=== PATIENT | male | born 1945 | race Caucasian/White ===

== ENCOUNTER 2016-05-03 06:44 | Day surgery (SDC) | payer MEDICARE, OTHER ==
[~2016-05-03 06:44] MED LIST: BESIFLOXACIN HCL 0.6% OPH SUSP 5 ML BOTTLE OS PRN; CYCLOPENTOLATE 0.2%/PHENYLEPHRINE 1% OPH SOLN 2 ML OS PRN; KETOROLAC TROMETHAMINE 0.45% 4 DROP/0.4 ML DROPERETTE OS PRN; TETRACAINE HCL 0.5% OPH SOLN 2 ML OS PRN; TROPICAMIDE 1% OPH SOLN 3 ML OS PRN
[2016-05-03] MEDS ORDERED: ALBUTEROL SULFATE 0.083% NEB 2.5 MG/3 ML AMPUL NEB ONE (07:00)
[2016-05-03] MEDS ORDERED: FENTANYL CITRATE INJ/PF 100 MCG/2 ML AMPUL ONE (07:06)
[2016-05-03] MEDS ORDERED: ONDANSETRON HCL INJ/PF 4 MG/2 ML SDV ONE (07:06)
[2016-05-03] MEDS ORDERED: MIDAZOLAM 2 MG/2 ML INJ ONE (07:06)
[2016-05-03] MEDS ORDERED: PHENYLEPHRINE/KETOROLAC 1%-0.3% 4 ML VIAL ONE (07:11)
[2016-05-03] MEDS ORDERED: LIDOCAINE 1% INJ-PF (10 MG/ML) 30 ML SDV ONE (07:12)
[2016-05-03] MEDS ORDERED: CHONDR SU A NA/HYALUR INTRAOC KIT (SURGICARE) ONE (07:12)
== END 2016-05-03 07:20 | disposition home or self-care (01) ==
LOC: SC 06:44
PROVIDERS: ATTEND Internal Medicine
DX: H25.12 Age-related nuclear cataract, left eye (principal); Z53.9 Procedure and treatment not carried out, unspecified reason
CPT/HCPCS: C9447; J2250; J2405; J3010; J3490

== ENCOUNTER 2016-11-01 07:26 | Day surgery (SDC) | payer MEDICARE, OTHER ==
[~2016-11-01 07:26] MED LIST changes: -BESIFLOXACIN HCL 0.6% OPH SUSP 5 ML BOTTLE OS PRN; -CYCLOPENTOLATE 0.2%/PHENYLEPHRINE 1% OPH SOLN 2 ML OS PRN; +MIDAZOLAM 2 MG/2 ML INJ ONE; -TETRACAINE HCL 0.5% OPH SOLN 2 ML OS PRN; -TROPICAMIDE 1% OPH SOLN 3 ML OS PRN
[2016-11-01] MEDS ORDERED: EPINEPHRINE INJ/PF 1 MG/1 ML AMPULE ONE (07:27)
[2016-11-01] MEDS ORDERED: LIDOCAINE 1% INJ-PF (10 MG/ML) 30 ML SDV ONE (07:27)
[2016-11-01] MEDS ORDERED: CHONDR SU A NA/HYALUR INTRAOC KIT (SURGICARE) ONE (07:28)
[2016-11-01] MEDS: CYCLOPENTOLATE 0.2%/PHENYLEPHRINE 1% OPH SOLN 2 ML OS PRN ×3 (07:45→08:09)
[2016-11-01] MEDS: TROPICAMIDE 1% OPH SOLN 3 ML OS PRN ×3 (07:45→08:09)
[2016-11-01] MEDS: BESIFLOXACIN HCL 0.6% OPH SUSP 5 ML BOTTLE OS PRN ×4 (07:46→08:53)
[2016-11-01] MEDS: TETRACAINE HCL 0.5% OPH SOLN 2 ML OS PRN ×3 (07:47→08:12)
--- NOTE | 2016-11-02 11:32 | [facility] DISCHARGE SUMMARY E ---
[facility] Discharge Summary NAME: DIAZ KARIMI AGE: 71Y ADMITTED: 11/01/2016 DISCHARGED: 11/01/2016 HOSPITAL COURSE: This is a 71-year-old male who underwent cataract extraction of the left eye. DIAGNOSIS: Cataract, left eye. INDICATIONS: He underwent surgery because he was having difficulty with headlights making it difficult to drive. DISCHARGE INSTRUCTIONS: She should be on a regular diet. No bending at his waist. No heavy lifting. He should use his Besivance, Ilevro, and Durezol at 3 p.m. and 8 p.m. and sleep with a rigid shield. I will see him for his 1 day postoperative tomorrow. DICTATING PHYSICIAN: YANELY SEE M.D. [id number] PHY#: [id number] ID: [id number] JOB#: [id number] ACCT: [id number] cc:YANELY SEE M.D. >
--- NOTE | 2016-11-02 11:32 | [facility] OPERATIVE REPORT E ---
[facility] Operative Report NAME: DIAZ KARIMI AGE: 71Y DATE OF SURGERY: 11/01/2016 ROOM: PREOPERATIVE DIAGNOSIS: CATARACT, LEFT EYE. POSTOPERATIVE DIAGNOSIS: CATARACT, LEFT EYE. OPERATION: Cataract extraction with intraocular lens implant of the left eye. SURGEON: YANELY SEE M.D. ANESTHESIA: Topical. PROCEDURE: After obtaining appropriate consent, the patient's left eye was prepped and draped in sterile fashion as well as the surgeon in a sterile manner and cataract surgery was started. First a paracentesis blade was used to make a small side-port incision. Viscoelastic was used to inflate the anterior chamber. Next a 2.4 mm incision was made with the paracentesis blade. A continuous capsulorrhexis incision was made using a cystotome and Utrata forceps. Following this hydrodissection was carried out to make the lens fully loose and mobile and it was rotated 90 degrees. Following this, a gsssij-glu-iadenkf technique was used to phacoemulsify the lens with a CDE of 22.93. The remaining cortex was removed with irrigation/aspiration. Provisc was instilled into the capsular bag to inflate the bag. A SN60WF, 23.0 diopter lens was placed. The remaining viscoelastic material was removed with irrigation/aspiration. Following this, a 10-0 nylon suture was used to close the incision and it was found to be watertight. Vigamox was instilled in the eye and a protective shield was placed over the eye. The patient returned to the postoperative recovery in stable condition. DICTATING PHYSICIAN: YANELY SEE M.D. [id number] PHY#: [id number] ID: [id number] JOB#: [id number] ACCT: [id number] cc:YANELY SEE M.D. >
== END 2016-11-01 09:51 | disposition home or self-care (01) ==
LOC: SC 07:26
PROVIDERS: ATTEND Internal Medicine
PROC: 08RK3JZ Replacement of Left Lens with Synthetic Substitute, Percutaneous Approach (ICD-10-PCS; principal; 2016-11-01 08:30)
DX: H25.12 Age-related nuclear cataract, left eye (principal)
CPT/HCPCS: 66984; V2632; J2250; J3490 ×2; A9270; J0171; 142

== ENCOUNTER 2016-11-22 06:45 | Day surgery (SDC) | payer MEDICARE, OTHER ==
[~2016-11-22 06:45] MED LIST changes: +KETOROLAC TROMETHAMINE 0.45% 4 DROP/0.4 ML DROPERETTE OD PRN; -KETOROLAC TROMETHAMINE 0.45% 4 DROP/0.4 ML DROPERETTE OS PRN; -MIDAZOLAM 2 MG/2 ML INJ ONE
[2016-11-22] MEDS: TROPICAMIDE 1% OPH SOLN 3 ML OD PRN ×3 (06:57→07:23)
[2016-11-22] MEDS: CYCLOPENTOLATE 0.2%/PHENYLEPHRINE 1% OPH SOLN 2 ML OD PRN ×3 (06:57→07:23)
[2016-11-22] MEDS: BESIFLOXACIN HCL 0.6% OPH SUSP 5 ML BOTTLE OD PRN ×3 (06:58→08:00)
[2016-11-22] MEDS: TETRACAINE HCL 0.5% OPH SOLN 2 ML OD PRN ×3 (06:59→07:36)
[2016-11-22] MEDS ORDERED: MIDAZOLAM 2 MG/2 ML INJ ONE (07:07)
[2016-11-22] MEDS ORDERED: FENTANYL CITRATE INJ/PF 100 MCG/2 ML AMPUL ONE (07:07)
[2016-11-22] MEDS ORDERED: EPINEPHRINE INJ/PF 1 MG/1 ML AMPULE ONE (07:11)
[2016-11-22] MEDS ORDERED: LIDOCAINE 1% INJ-PF (10 MG/ML) 30 ML SDV ONE (07:11)
[2016-11-22] MEDS ORDERED: CHONDR SU A NA/HYALUR INTRAOC KIT (SURGICARE) ONE (07:11)
--- NOTE | 2016-11-22 14:43 | [facility] OPERATIVE REPORT E ---
[facility] Operative Report NAME: DIAZ KARIMI AGE: 71Y DATE OF SURGERY: 11/22/2016 ROOM: PREOPERATIVE DIAGNOSIS: Cataract, right eye. POSTOPERATIVE DIAGNOSIS: Cataract, right eye. OPERATION: Cataract extraction with intraocular lens implant of the right eye. SURGEON: YANELY SEE M.D. ANESTHESIA: Topical. PROCEDURE: After obtaining appropriate consent, the patient's right eye was prepped and draped in sterile fashion as well as the surgeon in a sterile manner and cataract surgery was started. First a paracentesis blade was used to make a small side-port incision. Viscoelastic was used to inflate the anterior chamber. Next a 2.4 mm incision was made with the paracentesis blade. A continuous capsulorrhexis incision was made using a cystotome and Utrata forceps. Following this hydrodissection was carried out to make the lens fully loose and mobile and it was rotated 90 degrees. Following this, a kubqxl-hgu-zbcirkk technique was used to phacoemulsify the lens with a CDE of 27.23. The remaining cortex was removed with irrigation/aspiration. Provisc was instilled into the capsular bag to inflate the bag. A SN60WF, 23.5 diopter lens was placed. The remaining viscoelastic material was removed with irrigation/aspiration. Following this, a 10-0 nylon suture was used to close the incision and it was found to be watertight. Vigamox was instilled in the eye and a protective shield was placed over the eye. The patient returned to the postoperative recovery in stable condition. DICTATING PHYSICIAN: YANELY SEE M.D. [id number] PHY#: [id number] ID: [id number] JOB#: [id number] ACCT: [id number] cc:YANELY SEE M.D. >
--- NOTE | 2016-11-22 14:43 | [facility] DISCHARGE SUMMARY E ---
[facility] Discharge Summary NAME: DIAZ KARIMI AGE: 71Y ADMITTED: 11/22/2016 DISCHARGED: 11/22/2016 HISTORY OF PRESENT ILLNESS AND HOSPITAL COURSE: This is a 71-year-old male who underwent cataract extraction of the right eye. DIAGNOSIS: Cataract, right eye. HOSPITAL COURSE: He underwent surgery because he was having difficulty seeing road signs. DISCHARGE INSTRUCTIONS: 1. He should be on a regular diet. 2. No bending at the waist and no heavy lifting. 3. He should use his Besivance, Ilevro, and Durezol at 3 p.m. and 8 p.m. and sleep with a rigid shield. 4. I will see him for his one-day postoperative tomorrow. DICTATING PHYSICIAN: YANELY SEE M.D. [id number] JOSE#: [id number] ID: [id number] JOB#: [id number] ACCT: [id number] cc:YANELY SEE M.D. >
== END 2016-11-22 09:00 | disposition home or self-care (01) ==
LOC: SC 06:45
PROVIDERS: ATTEND Internal Medicine
PROC: 08RJ3JZ Replacement of Right Lens with Synthetic Substitute, Percutaneous Approach (ICD-10-PCS; principal; 2016-11-22 07:30)
DX: H25.11 Age-related nuclear cataract, right eye (principal); Z96.1 Presence of intraocular lens; Z98.42 Cataract extraction status, left eye; J44.9 Chronic obstructive pulmonary disease, unspecified; K21.9 Gastro-esophageal reflux disease without esophagitis; Z87.891 Personal history of nicotine dependence; Z79.899 Other long term (current) drug therapy
CPT/HCPCS: 66984; V2632; J2250; J3490 ×2; A9270; J0171; J3010; 142

== ENCOUNTER 2018-06-12 18:56 | Emergency (ER) | payer MEDICARE, OTHER ==
--- NOTE | 2018-06-12 20:14 | EKG REPORT ---
SEVERITY:- ABNORMAL ECG - SINUS RHYTHM INCOMPLETE LEFT BUNDLE BRANCH BLOCK : Confirmed by: Diana Garner MD 12-Jun-2018 20:13:57
[2018-06-12] MEDS ORDERED: ASPIRIN 81 MG TABLET, CHEWABLE PO ONE (21:26)
--- NOTE | 2018-06-12 21:33 | ER Document Report ---
ED Medical Screen (RME) - General Chief Complaint: Chest Pain Stated Complaint: CHEST PAIN Time Seen by Provider: 06/12/18 21:26 Primary Care Provider: TERRI CARDENAS MD [Primary Care Provider] - Follow up as needed Notes: 72-year-old male, chief complaint of chest pain, had it earlier today and then again while working outside using his chainsaw. It is very specific, sharp, over the left side of his chest. Denies shortness of breath, dizziness, nausea, vomiting. History of COPD, denies history of RI or cardiac disease. TRAVEL OUTSIDE OF THE [place] IN LAST 30 DAYS: No - Related Data Allergies/Adverse Reactions: No Known Allergies Allergy (Verified 06/12/18 18:57) Past Medical History - Past Medical History Cardiac Medical History: Denies: Hx Heart Attack, Hx Hypertension - USUALLY LOW Pulmonary Medical History: Reports: Hx COPD Denies: Hx Asthma Neurological Medical History: Denies: Hx Cerebrovascular Accident, Hx Seizures GI Medical History: Reports: Hx Gastroesophageal Reflux Disease, Hx Ulcer - 1965. Denies: Hx Hepatitis, Hx Hiatal Hernia Infectious Medical History: Denies: Hx Hepatitis Past Surgical History: Reports: Hx Appendectomy. Denies: Hx Open Heart Surgery, Hx Pacemaker Physical Exam - Vital signs Vitals: Temp Pulse Resp BP Pulse Ox 98.1 F 81 20 114/67 97 06/12/18 19:25 06/12/18 19:25 06/12/18 19:25 06/12/18 19:25 06/12/18 19:25 - Respiratory Chest status: Tender - There is reproducible chest wall tenderness on the left mid to lower chest Breath sounds: Decreased air movement - Cardiovascular Rhythm: Regular. No: Tachycardia Heart sounds: Normal auscultation, S1 appreciated, S2 appreciated Course - Re-evaluation Re-evalutation: I have greeted and performed a rapid initial assessment of this patient. A comprehensive ED assessment and evaluation of the patient, analysis of test results and completion of the medical decision making process will be conducted by additional ED providers. - Vital Signs Vital signs: Temp Pulse Resp BP Pulse Ox 98.1 F 81 20 114/67 97 06/12/18 19:25 06/12/18 19:25 06/12/18 19:25 06/12/18 19:25 06/12/18 19:25 Doctor's Discharge - Discharge Referrals: TERRI CARDENAS MD [Primary Care Provider] - Follow up as needed
[2018-06-12 22:24] LABS: ABSOLUTE BASOPHILS # (AUTO) 0.1 10^3/uL (0.0-0.2); ABSOLUTE EOSINOPHILS # (AUTO) 0.1 10^3/uL (0.0-0.6); ABSOLUTE LYMPHOCYTES (AUTO) 1.3 10^3/uL (0.5-4.7); ABSOLUTE MONOCYTES (AUTO) 0.6 10^3/uL (0.1-1.4); ABSOLUTE NEUT (AUTO) 3.2 10^3/uL (1.7-8.2); EOSINOPHILS % (AUTO) 2.1 % (0-6); HEMATOCRIT 42.6 % (37.9-51.0); HEMOGLOBIN 14.4 g/dL (13.5-17.0); LYMPHOCYTES % (AUTO) 23.9 % (13-45); MEAN CORPUSCULAR HGB CONC 33.8 g/dL (32.0-36.0); MEAN CORPUSCULAR VOLUME 86 fl (80-97); MONOCYTES % (AUTO) 11.6 % (3-13); PLATELET COUNT 185 10^3/uL (150-450); RED BLOOD COUNT 4.97 10^6/uL (4.35-5.55); RED CELL DISTRIBUTION WIDTH 14.9 % (11.5-14.0); SEGMENTED NEUTROPHILS % (AUTO) 61.4 % (42-78); TOTAL CELLS COUNTED % (AUTO) 100 %; WHITE BLOOD COUNT 5.2 10^3/uL (4.0-10.5)
--- NOTE | 2018-06-12 22:24 | RADIOLOGY REPORT (SQ) ---
EXAM DESCRIPTION: X-ray single view chest. CLINICAL HISTORY: 72 years Male, chest pain COMPARISON: None. TECHNIQUE: Single (one) portable x-ray view of the chest performed on 06/12/2018 at 9:54 PM FINDINGS: The lungs are well expanded and are clear. There is no evidence of a pneumothorax. The cardiac silhouette is normal in size and configuration. The mediastinal contours are normal. No acute osseous abnormality is identified. There is mild scoliosis of the thoracolumbar spine convex to the right. No focal soft tissue abnormalities are seen. Lines and tubes: None. IMPRESSION: No evidence of acute intrathoracic disease.
[2018-06-12 22:34] LABS: ALANINE AMINOTRANSFERASE 16 U/L (21-72); ALBUMIN 4.5 g/dL (3.5-5.0); ALKALINE PHOSPHATASE 126 U/L (38-126); ANION GAP 8 (5-19); ASPARTATE AMINO TRANSFERASE 29 U/L (17-59); BILIRUBIN,DIRECT 0.4 mg/dL (0.0-0.4); BILIRUBIN,TOTAL 0.7 mg/dL (0.2-1.3); BLOOD UREA NITROGEN 23 mg/dL (7-20); CALCIUM 9.6 mg/dL (8.4-10.2); CARBON DIOXIDE 28 mmol/L (22-30); CHLORIDE 108 mmol/L (98-107); GLUCOSE 90 mg/dL (75-110); POTASSIUM 4.4 mmol/L (3.6-5.0); SODIUM 143.5 mmol/L (137-145); TOTAL PROTEIN 8.1 g/dL (6.3-8.2)
--- NOTE | 2018-06-13 02:58 | ER Document Report ---
ED Cardiac - General Chief Complaint: Chest Pain Stated Complaint: CHEST PAIN Time Seen by Provider: 06/12/18 21:26 Primary Care Provider: TERRI CARDENAS MD [ACTIVE STAFF] - Follow up as needed Mode of Arrival: Ambulatory Information source: Patient Notes: Patient complained of chest pain which started around 12 noon yesterday when he was cutting a tree with a chainsaw and raking the yard at his home. He said the chest pain. When he stopped exerting himself. However the chest pain came back and when he came to the ED after receiving aspirin his chest pain stopped. Since then he has not come back. TRAVEL OUTSIDE OF THE [place] IN LAST 30 DAYS: No - HPI Patient complains to provider of: Chest pain Was the onset of pain: Sudden Is the pain a: New problem Chest pain location: Substernal Quality of pain: Intermittent, Heaviness Chest pain radiation location: None Severity now: Moderate Severity at worst: Moderate Pain level currently: 0 Chest pain precipitating factors: Physical Exertion Cardiac risk factors: None Positive cardiac history: No Associated symptoms: None Exacerbated by: Activity Relieved by: Rest, Other - Aspirin Similar symptoms previously: No Recently seen / treated by doctor: No - Related Data Allergies/Adverse Reactions: No Known Allergies Allergy (Verified 06/12/18 18:57) Past Medical History - Social History Smoking Status: Former Smoker Family History: Reviewed & Not Pertinent Patient has suicidal ideation: No Patient has homicidal ideation: No - Past Medical History Cardiac Medical History: Denies: Hx Heart Attack, Hx Hypertension - USUALLY LOW Pulmonary Medical History: Reports: Hx COPD Denies: Hx Asthma Neurological Medical History: Denies: Hx Cerebrovascular Accident, Hx Seizures Renal/ Medical History: Denies: Hx Peritoneal Dialysis GI Medical History: Reports: Hx Gastroesophageal Reflux Disease, Hx Ulcer - 1965. Denies: Hx Hepatitis, Hx Hiatal Hernia Infectious Medical History: Denies: Hx Hepatitis Past Surgical History: Reports: Hx Appendectomy. Denies: Hx Open Heart Surgery, Hx Pacemaker Review of Systems - Review of Systems Constitutional: No symptoms reported EENT: No symptoms reported Cardiovascular: Chest pain Respiratory: No symptoms reported Gastrointestinal: No symptoms reported Genitourinary: No symptoms reported Male Genitourinary: No symptoms reported Musculoskeletal: No symptoms reported Skin: No symptoms reported Hematologic/Lymphatic: No symptoms reported Neurological/Psychological: No symptoms reported -: Yes All other systems reviewed and negative Physical Exam - Vital signs Vitals: Temp Pulse Resp BP Pulse Ox 98.1 F 81 20 114/67 97 06/12/18 19:25 06/12/18 19:25 06/12/18 19:25 06/12/18 19:25 06/12/18 19:25 Interpretation: Normal - General General appearance: Appears well, Alert - HEENT Head: Normocephalic, Atraumatic Eyes: Normal Pupils: PERRL - Respiratory Respiratory status: No respiratory distress Chest status: Nontender Breath sounds: Normal Chest palpation: Normal - Cardiovascular Rhythm: Regular Heart sounds: Normal auscultation Murmur: No - Abdominal Inspection: Normal Distension: No distension Bowel sounds: Normal Tenderness: Nontender Organomegaly: No organomegaly - Back Back: Normal, Nontender - Extremities General upper extremity: Normal inspection, Nontender, Normal color, Normal ROM, Normal temperature General lower extremity: Normal inspection, Nontender, Normal color, Normal ROM, Normal temperature, Normal weight bearing. No: Lindsey's sign - Neurological Neuro grossly intact: Yes Cognition: Normal Orientation: AAOx4 Leigh Ann Coma Scale Eye Opening: Spontaneous Gordon Coma Scale Verbal: Oriented Leigh Ann Coma Scale Motor: Obeys Commands Gordon Coma Scale Total: 15 Speech: Normal Motor strength normal: LUE, RUE, LLE, RLE Sensory: Normal - Psychological Associated symptoms: Normal affect, Normal mood - Skin Skin Temperature: Warm Skin Moisture: Dry Skin Color: Normal Course - Vital Signs Vital signs: Temp Pulse Resp BP Pulse Ox 98.1 F 81 13 110/64 95 06/12/18 19:25 06/12/18 19:25 06/13/18 04:38 06/13/18 04:38 06/13/18 04:38 - Laboratory Result Diagrams: 06/12/18 21:44 06/12/18 21:44 Laboratory results interpreted by me: 06/12/18 06/12/18 21:44 21:44 RDW 14.9 H Chloride 108 H BUN 23 H ALT 16 L - Diagnostic Test Radiology reviewed: Reports reviewed - EKG Interpretation by [facility] EKG shows normal: Sinus rhythm Rate: Normal - 82 Rhythm: NSR [place]/QRS: LBBB When compared to previous EKG there are: No significant change Additional EKG results interpreted by me: 06/13/18 02:55 Incomplete left bundle branch block which is unchanged from old EKG of February 29, 2016. No STEMI. - Transfer of Care Notes: 06/13/18 04:32 Patient care was discussed with Dr. Justin Russo the hospitalist reception centre manager. He will admit patient to the hospital for further evaluation and management. Discharge - Discharge Clinical Impression: Chest pain Qualifiers: Chest pain type: unspecified Qualified Code(s): R07.9 - Chest pain, unspecified Condition: Stable Disposition: AGAINST MEDICAL ADVICE Admitting Provider: Hospitalist Unit Admitted: Telemetry Referrals: TERRI CARDENAS MD [ACTIVE STAFF] - Follow up as needed
[2018-06-13] MEDS ORDERED: MAG HYDROX/AL HYDROX/SIMETH SUSP 30 ML UDCUP PO PRN (04:33)
[2018-06-13] MEDS ORDERED: CARBIDOPA/LEVODOPA 25-100 MG TABLET PO ONE (04:45)
[2018-06-13] MEDS ORDERED: BACLOFEN 10 MG TABLET PO PRN (04:45)
[2018-06-13 04:46] VITALS: BP 110/64
[2018-06-13] MEDS ORDERED: PANTOPRAZOLE SODIUM 40 MG TABLET.DR PO SCH (06:00)
[2018-06-13] MEDS ORDERED: TIOTROPIUM BROMIDE DPI 5 CAP/KIT (18 MCG/CAP) IH SCH (10:00)
[2018-06-13] MEDS ORDERED: CETIRIZINE 10 MG TABLET PO SCH (10:00)
[2018-06-13] MEDS ORDERED: CARBIDOPA/LEVODOPA 25-100 MG TABLET PO SCH (10:00)
[2018-06-13] MEDS ORDERED: ASPIRIN 81 MG TABLET, ENT COATED PO SCH (10:00)
== END 2018-06-13 04:46 | disposition left against medical advice (07) ==
LOC: ER 18:56
DX: R07.9 Chest pain, unspecified (principal); X58.XXXA Exposure to other specified factors, initial encounter; Z87.891 Personal history of nicotine dependence; J44.9 Chronic obstructive pulmonary disease, unspecified
CPT/HCPCS: 93005; 99285; 36415; 85025; 80053; 84484; 71045; 93010; A9270; J3490

== ENCOUNTER 2018-12-13 11:20 | Emergency (ER) | payer MEDICARE, OTHER ==
--- NOTE | 2018-12-13 12:37 | ER Document Report ---
ED Medical Screen (RME) - General Chief Complaint: Skin Problem Stated Complaint: SKIN ISSUE Time Seen by Provider: 12/13/18 12:32 Primary Care Provider: SHAAN DUMONT MD [Primary Care Provider] - Follow up as needed Mode of Arrival: Ambulatory Information source: Patient Notes: Patient reports a black spot to the right anterior thigh for the past 2 weeks. Patient states yesterday around the black lesion he developed some yellow discoloration. Patient denies any trauma to the leg. Patient denies any fever. Patient is concerned about gangrene and possibly losing his extremity. I have greeted and performed a rapid initial assessment of this patient. A comprehensive ED assessment and evaluation of the patient, analysis of test results and completion of the medical decision making process will be conducted by additional ED providers. TRAVEL OUTSIDE OF THE [place] IN LAST 30 DAYS: No - Related Data Allergies/Adverse Reactions: No Known Allergies Allergy (Verified 12/13/18 12:24) Past Medical History - Past Medical History Cardiac Medical History: Denies: Hx Heart Attack, Hx Hypertension - USUALLY LOW Pulmonary Medical History: Reports: Hx COPD Denies: Hx Asthma Neurological Medical History: Denies: Hx Cerebrovascular Accident, Hx Seizures Renal/ Medical History: Denies: Hx Peritoneal Dialysis GI Medical History: Reports: Hx Gastroesophageal Reflux Disease, Hx Ulcer - 1965. Denies: Hx Hepatitis, Hx Hiatal Hernia Infectious Medical History: Denies: Hx Hepatitis Past Surgical History: Reports: Hx Appendectomy. Denies: Hx Open Heart Surgery, Hx Pacemaker Physical Exam - Vital signs Vitals: Temp Pulse Resp BP Pulse Ox 97.6 F 81 18 119/64 93 12/13/18 11:24 12/13/18 11:24 12/13/18 11:12/13/18 11:12/13/18 11:24 - Skin Skin Color: Ecchymosis - Ecchymosis to right anterior leg Course - Vital Signs Vital signs: Temp Pulse Resp BP Pulse Ox 97.6 F 81 18 119/64 93 12/13/18 11:24 12/13/18 11:24 12/13/18 11:24 12/13/18 11:24 12/13/18 11:24 Doctor's Discharge - Discharge Referrals: SHAAN DUMONT MD [Primary Care Provider] - Follow up as needed
--- NOTE | 2018-12-13 14:12 | ER Document Report ---
HPI - HPI Patient complains to provider of: right leg skin lesion Time Seen by Provider: 12/13/18 12:32 Onset/Duration: Gradual, Persistent Quality of pain: No pain Severity: Mild Pain Level: Denies Context: 73 yom with the listed pmh here for concern of a discoloration on his right anterior midshaft thigh for the last almost month. he hasn't f/u with his pcp or anyone for this. there is no pain, drainage, bleeding, swelling or discharge from the area and pt states he never would have known it was there if he had not had looked down at his leg. pt isn't able to tell me any traumatic event or known etiology or causatory factor of his skin discoloration. he is able to walk. no numbness, tingling, weakness, saddle anesthesia, fever, uti sx, low back pain, incontinence, or any other sx. no hx of diabetes or asthma. no recent abx or steroids. hasn't put anything on it or sought care until now. denies bleeding from anywhere. no prior hx of easy bruising or bleeding. no hx of bleeding or clotting disorders. denies acute blood loss sx. no lesions any where else. no hx of cancer. no itching. no concerns for stds. no liver dz. no uti sx. no blood thinners. no tick bites, no other complaints at this time. Exacerbated by: Denies Relieved by: Denies Similar symptoms previously: No Recently seen / treated by doctor: No - ROS Systems Reviewed and Negative: Yes All other systems reviewed and negative - to include 10 systems, unless mentioned in the hpi Past Medical History - General Information source: Patient - Social History Smoking Status: Former Smoker Frequency of alcohol use: None Drug Abuse: None Lives with: Spouse/Significant other Family History: Reviewed & Not Pertinent Patient has suicidal ideation: No Patient has homicidal ideation: No - Past Medical History Cardiac Medical History: Denies: Hx Heart Attack Comment Only: Hx Hypertension - USUALLY LOW Pulmonary Medical History: Reports: Hx COPD - not on home o2 Denies: Hx Asthma Neurological Medical History: Denies: Hx Cerebrovascular Accident, Hx Seizures Renal/ Medical History: Denies: Hx Peritoneal Dialysis GI Medical History: Reports: Hx Gastroesophageal Reflux Disease, Hx Ulcer - 1965. Denies: Hx Hepatitis, Hx Hiatal Hernia Infectious Medical History: Denies: Hx Hepatitis Past Surgical History: Reports: Hx Appendectomy, Hx Orthopedic Surgery - right hand. Denies: Hx Open Heart Surgery, Hx Pacemaker - Immunizations Immunizations up to date: Yes Hx Diphtheria, Pertussis, Tetanus Vaccination: Yes Vertical Provider Document - CONSTITUTIONAL Agree With Documented VS: Yes Exam Limitations: No Limitations General Appearance: WD/WN Notes: GENERAL_APPEARANCE: alert, cooperative, no_obvious_discomfort. pleasant, elderly thin black male, smiling, speaking in full sentences, easily sitting up, in no sign of pain or resp distress. multiple family members at bedside all laughing and joking around with pt VITALS: reviewed, see vital signs table. HEAD:normocephalic, atraumatic, no moncada signs, no raccoon eyes EYES: conjunctiva_clear. EOMI, PERRL. no eyelid swelling. no photophobia, no nystagmus, no drainage EARS: normal tms and canals bilat, no rash. no drainage NOSE:no drainage or bleeding MOUTH: (-)decreased moisture. THROAT: no_tonsilar_inflammation/hypertrophy/exudate, no_airway_obstruction. no tongue or lip swelling, no drooling, tripoding, voice change or stridor. no sign of anaphylaxis. no oral lesions. no thrush NECK: no tenderness or swelling. full rom. full strength. no meningeal signs. no lymphadenopathy. LUNGS: no_wheezing, ctab, (-)accessory muscle use, good air exchange bilateral. HEART: normal_rate, normal_rhythm, ABDOMEN: normal_BS, soft, no abd tenderness, no guarding, rebound, distension, or peritoneal signs, no cva ttp EXTREMITIES: strength 5/5 in all extremities, no swelling\tenderness in the extremities, no edema. full rom. normal gait. brisk cap refill. 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 NEURO: motor and sensation intact to light touch, cranial nerves 2-12 intact, cerebellar fxn intact SKIN: warm, dry, good color, rash: two very small <0.5cm in diameter resolved likely bruises to his right mid shaft anterior thigh. no sign of cellulitis or compartment syndrome. non drainable collection. it doesn't appear like a drug rash, allergic reaction, spider bite, necrosis, fungal, or hives. area nonttp. There is no fluctuation, drainage, streaking, bleeding, or drainable fluid collection. There is no central clearing. not tinea or hive like. It does solomon. not dermatomal. not on palms soles, intraorally, or in the webspaces. no sign of tens, erythema multiforme, or win keith. no target lesions. MENTAL_STATUS: speech clear, oriented_X_3, responds appropriately to question s. - INFECTION CONTROL TRAVEL OUTSIDE OF THE [place] IN LAST 30 DAYS: No Course - Re-evaluation Re-evalutation: pt here for two very small <0.5cm in diameter resolved likely bruises to his right midshaft anterior thigh. no sign of cellulitis or compartment syndrome. non drainable collection. it doesn't appear like a drug rash, allergic reaction, spider bite, necrosis, fungal, or hives. offered pt labs to check his h/h and plts and lft's to make sure that wasn't the cause of his 2 very small likely contusions; however, he refused and stated he had an apt with dr mcgee his pcp/cards in 2 days and was supposed to get blood work then and doesn't want to have to be stuck with a needle again. advised to keep this apt without fail. he denies bleeding or bruising anywhere else. no acute blood loss sx. no hx of easy bruising. no intoxication. advised sx care. pt ambulates normally. neurononfocal unless otherwise noted. advised to f/u with pcp/cards/sherry in 1-2 days. return for any worsening symptoms. vss. well appearing. satting well on ra. neurononfocal. pt understands and agrees to plan. On reexam, pt remained stable. nontoxic. well appearing. pain controlled. tolerating po. requesting to go home. Documentation achieved through voice recording which may lead to some occasio nal accidental typographical errors. Extensive efforts have been made to proof read documentation to make sure these are the least as possible. - Vital Signs Vital signs: Temp Pulse Resp BP Pulse Ox 97.6 F 81 18 119/64 93 12/13/18 11:24 12/13/18 11:24 12/13/18 11:24 12/13/18 11:24 12/13/18 11:24 Temp Pulse Resp BP Pulse Ox 12/13/18 14:47 98.0 F 73 16 111/58 L 94 12/13/18 11:24 97.6 F 81 18 119/64 93 Discharge - Discharge Clinical Impression: Multiple ecchymoses of thigh Condition: Good Disposition: HOME, SELF-CARE Instructions: Contusion ([facility]) Additional Instructions: Follow-up with PCP/cards in 1 to 2 days. Return for any worsening symptoms. Keep your appointment with Dr. Mcgee in 2 days to have your routine blood work done to check your hemoglobin/hematocrit and platelets as discussed and to have further workup of your small area of bruising on your right leg.. Referrals: SHAAN DUMONT MD [Primary Care Provider] - Follow up tomorrow JENIFER MCGEE MD [ACTIVE STAFF] - Follow up tomorrow
[2018-12-13 14:57] VITALS: BP 111/58
== END 2018-12-13 14:57 | disposition home or self-care (01) ==
LOC: ER 11:20
DX: R58 Hemorrhage, not elsewhere classified (principal); J44.9 Chronic obstructive pulmonary disease, unspecified; Z87.891 Personal history of nicotine dependence
CPT/HCPCS: 99283

== ENCOUNTER → 2020-03-23 | Outpatient (CLI) | payer MEDICARE, OTHER ==
--- NOTE | 2020-03-23 12:11 | ER RDC ASSESSMENT REPORT ---
Intake - In the Last 14 days Have you traveled outside [place]?: No Have you been in close contact with someone CONFIRMED: Yes Worked in Healthcare?: No - Symptoms Subjective Fever(Burke feverish): No Chills: No Muscule Aches: No Runny Nose: No Sore Throat: No Cough (New or worsening chronic cough): Yes Shortness of breath: No Nausea or Vomiting: No Headache: No Abdominal Pain: No Diarrhea(3 or more loose stools in last 24 hours): No - Do you have any of the following Chronic lung disease: Asthma or emphysema or COPD: Yes Chronic Lung Disease Comment: copd Cystic Fibrosis: No Diabetes: No High Blood Pressure: No Cardiovascular Disease: Yes Chronic Kidney Disease: No Chronic Liver Disease: No Chronic blood disorder like Sickle Cell Disease: No Weak immune system due to disease or medication: No Neurologic condition that limits movement: Yes Neurological Condition Comment: Parkinson's, dementia Developmental delay - Moderate to Severe: No Recent (within past 2 weeks) or current : No Morbid Obesity (>100 pounds over ideal weight): No - Objective Temperature: 98.4 F Pulse Rate: 102 Respiratory Rate: 15 Blood Pressure: 108/61 O2 Sat by Pulse Oximetry: 92 Objective: Given above, testing performed: If Testing Performed: Test Specimen Type Sent to General - General Information source: Relative Notes: Patient presents RDC for screening for the coronavirus. Patient was exposed to family member who tested positive recently. - Related Data Allergies/Adverse Reactions: No Known Allergies Allergy (Verified 12/13/18 12:24) Past Medical History - General Information source: Relative - Social History Family History: Reviewed & Not Pertinent - Medical History Medical History: Other - Parkinson's - Past Medical History Cardiac Medical History: Reports: Hx Coronary Artery Disease Denies: Hx Heart Attack Comment Only: Hx Hypertension - USUALLY LOW Pulmonary Medical History: Reports: Hx COPD - not on home o2 Denies: Hx Asthma Neurological Medical History: Reports: Hx Parkinson's Disease, Other - Dementia. Denies: Hx Cerebrovascular Accident, Hx Seizures Renal/ Medical History: Denies: Hx Peritoneal Dialysis GI Medical History: Reports: Hx Gastroesophageal Reflux Disease, Hx Ulcer - 1967. Denies: Hx Hepatitis, Hx Hiatal Hernia Infectious Medical History: Denies: Hx Hepatitis Past Surgical History: Reports: Hx Appendectomy, Hx Orthopedic Surgery - right hand Physical Exam - Notes Notes: The patient was evaluated during the global Covid 19 pandemic, and that diagnosis was suspected/considered upon their initial presentation. Their evaluation and testing was consistent with current guidelines for patients who present with complaints or symptoms that may be related to Covid 19. Full physical exam could not be performed due to covid 19 isolation protocols. Constitutional: Nontoxic appearance, no acute distress Eyes: Nonicteric, sclera clear Cardiovascular: Heart rate and rhythm regular no JVD Respiratory: Breath sounds clear bilaterally, nonlabored breathing, no use of accessory muscles, no tachypnea Gastrointestinal: Abdomen not distended Muculoskeletal: Moves all extremities well Skin: Normal color Neuro: Awake alert confused Psych: Normal mood and affect Diagnostic Results Laboratory Results: Patient presents with upper respiratory symptoms worrisome for possible Covid 19. Patient appears suitable for discharge as vital signs are stable and patient is nontoxic in appearance. Good return precautions have been discussed with patient's family, patient's family verbalized understanding and is agreeable with discharge plan of care at this time. Patient Education/Counseling Guidance for worsening S/SX: Patient was provided with discharge information including: As a person under investigation for Covid 19, the [place] department of Health and Human Services, division of public health advises you to adhere to the following guidance until your test results are reported to you. If your test result is positive, you will receive additional information from your provider and your local health department at that time. Remain at home until you are cleared by the health provider or public health authorities. Keep a log of visitors to your home, notify any visitors to your home of your isolation status. If you plan to move to a new address or leave the [facility], notify the local health department in your County. Call your doctor or seek care if you have an urgent medical need. Before seeking medical care, call ahead to get instructions from the provider before arriving at the medical office clinic or hospital. Notify them that you are being tested for the virus that causes Covid 19 so that arrangements can be made, as necessary, to prevent transmission to others in the healthcare setting. Next, notify the local health department in your county. If a medical emergency arises and you need to call 911, inform the first responders that you are being tested for the virus that causes Covid 19. Next, notify the local health department in your county. RDC Discharge - Discharge Clinical Impression: Encounter for screening for COVID-19 Condition: Stable Disposition: Home; Selfcare
[2020-03-23 13:24] VITALS: BP 108/61
[2020-03-23 15:08] LABS: A TYPE INFLUENZA AG NEGATIVE (NEGATIVE); B INFLUENZA AG NEGATIVE (NEGATIVE)
== END ==
LOC: RDC 11:58
PROVIDERS: ATTEND Nurse Practitioner Family
DX: Z20.822 Contact with and (suspected) exposure to COVID-19 (principal); R05 Cough; J44.9 Chronic obstructive pulmonary disease, unspecified; I25.10 Atherosclerotic heart disease of native coronary artery without angina pectoris; G20 Parkinson's disease; F02.80 Dementia in other diseases classified elsewhere, unspecified severity, without behavioral disturbance, psychotic disturbance, mood disturbance, and anxiety; K21.9 Gastro-esophageal reflux disease without esophagitis
CPT/HCPCS: 87070; 87880; 87804; 99202; U0003; G0463; C9803; 87635; 99211